=== PATIENT | female | born 1970 | race Caucasian/White ===

== ENCOUNTER 2023-07-06 22:42 | Emergency (ER) | payer MEDICAID ==
[~2023-07-06] VITALS: Ht 144.8 cm; Wt 56.0 kg
[2023-07-06 23:00] VITALS: RESP 14; O2SAT 99
[2023-07-07] MEDS ORDERED: CETI5TAB5 MT (00:14)
[2023-07-07] MEDS ORDERED: HYDR453.3 TP (00:14)
[2023-07-07] MEDS ORDERED: NIZOS TP (00:14)
[2023-07-07 00:46] VITALS: BP 148/90; PULSE 96; TEMP 98.3
== END 2023-07-07 00:53 | disposition home or self-care (01) ==
LOC: ER 23:32
DX: L30.9 Dermatitis, unspecified (principal); I10 Essential (primary) hypertension
CPT/HCPCS: 99282

== ENCOUNTER 2024-02-07 20:08 | Emergency (ER) | payer MEDICAID ==
[~2024-02-07] VITALS: Ht 154.9 cm; Wt 55.0 kg
[~2024-02-07 20:08] MED LIST: CETI5TAB5 MT; FLUT9.9S BOTHNSTRLS; HYDR453.3 TP; LORA10TA64 MT; NIZOS TP; OLOP2.5D12 EACHEYE; P50 MT
[2024-02-07 20:13] VITALS: O2SAT 100
[2024-02-07 21:17] LABS: BASOPHILS % 0.5 % (0.0-2.0); EOSINOPHILS % 1.6 % (0.0-5.0); HEMATOCRIT. 34.7 % (36.0-48.0); HEMOGLOBIN. 11.3 g/dL (12.0-16.0); LYMPHOCYTES % 38.1 % (20.0-50.0); MEAN CORPUSCULAR HEMOGLOBIN 28.7 pg (28.0-32.0); MEAN CORPUSCULAR HGB CONC 32.6 g/dL (31.0-37.0); MEAN CORPUSCULAR VOLUME 88.2 fL (81.0-99.0); MEAN PLATELET VOLUME 10.1 fl (7.4-10.4); MONOCYTES % 8.6 % (2.0-8.0); NEUTROPHILS % 51.2 % (40.0-76.0); PLATELET 214 x1000/uL (130-400); RED BLOOD CELL COUNT 3.93 mill/uL (4.2-5.4); WHITE BLOOD COUNT 6.7 x1000/uL (4.5-11.0)
[2024-02-07 21:18] LABS: CARBON DIOXIDE 27 mEq/L (21-32); CHLORIDE 105 mEq/L (98-107); POTASSIUM 3.1 mEq/L (3.5-5.1); SODIUM 140 mEq/L (136-145)
[2024-02-07 21:19] LABS: CALCIUM 9.5 mg/dL (8.7-10.4)
[2024-02-07 21:24] LABS: GLUCOSE 132 mg/dL (70-105); UREA NITROGEN BLOOD 20 mg/dL (9-23)
[2024-02-07 21:25] LABS: ACETAMINOPHEN < 2 ug/mL (10-30); ALANINE AMINOTRANSFERASE 14 IU/L (10-49); ALBUMIN 4.3 g/dL (3.2-4.8); ASPARTATE AMINOTRANSFERASE 20 IU/L (<34); ETHANOL BLOOD < 10 mg/dL (<10)
[2024-02-07 21:26] LABS: BILIRUBIN TOTAL 0.2 mg/dL (0.1-1.0); PROTEIN TOTAL 6.5 g/dL (6.0-8.3)
[2024-02-07 21:27] LABS: BILIRUBIN DIRECT < 0.1 mg/dL (<=3.0)
[2024-02-07 21:30] LABS: HCG SCREEN NEGATIVE
[2024-02-07] MEDS ORDERED: POTASSIUM CHLORIDE 20MEQ TABLET SR PO ONE (22:00)
[2024-02-08] MEDS: POTASSIUM CHLORIDE 20MEQ TABLET SR PO NR (06:15)
[2024-02-08 07:40] VITALS: BP 126/71; PULSE 97; RESP 14; TEMP 36.89184; O2SAT 100
== END 2024-02-08 09:34 | disposition home or self-care (01) ==
LOC: ER 20:08
DX: R44.0 Auditory hallucinations (principal); F15.10 Other stimulant abuse, uncomplicated; F32.9 Major depressive disorder, single episode, unspecified; I10 Essential (primary) hypertension; Z79.899 Other long term (current) drug therapy
CPT/HCPCS: 36415; 80048; 80076; 80307; 80320; 80329; 84703; 85025; 99283; G0480

== ENCOUNTER 2025-02-27 16:07 | Emergency (ER) | payer MEDICAID ==
[~2025-02-27] VITALS: Ht 157.5 cm; Wt 74.0 kg
[2025-02-27 16:10] VITALS: O2SAT 98
[2025-02-27] MEDS ORDERED: DEXT15DR5 RIGHTEYE (16:58)
[2025-02-27] MEDS ORDERED: ACYC-58 MT (16:58)
[2025-02-27 18:16] VITALS: BP 129/81; PULSE 80; RESP 18; TEMP 37.1; O2SAT 98
== END 2025-02-27 18:23 | disposition home or self-care (01) ==
LOC: ER 16:07
DX: G51.0 Bell's palsy (principal); E78.00 Pure hypercholesterolemia, unspecified; E11.9 Type 2 diabetes mellitus without complications; F32.A Depression, unspecified; I10 Essential (primary) hypertension; M19.90 Unspecified osteoarthritis, unspecified site; F15.90 Other stimulant use, unspecified, uncomplicated; Z79.899 Other long term (current) drug therapy
CPT/HCPCS: 82962; 99283